=== PATIENT | female | born 1955 | race Caucasian/White ===

== ENCOUNTER 2019-02-19 20:21 | Emergency (ER) | payer BC, OTHER ==
[~2019-02-19] VITALS: Ht 162.6 cm; Wt 75.0 kg
[2019-02-19] MEDS ORDERED: SITA25 PO (21:02)
[2019-02-19] MEDS ORDERED: ATOR40TA28 PO (21:02)
[2019-02-19] MEDS ORDERED: AMLO10TA7 PO (21:04)
[2019-02-19] MEDS ORDERED: LOSA50TA64 PO (21:04)
[2019-02-19] MEDS ORDERED: ASPI81 PO (21:06)
[2019-02-19] MEDS ORDERED: METF-960 PO (21:06)
[2019-02-19] MEDS ORDERED: HYDR25TA PO (21:06)
[2019-02-19 22:35] LABS: BASOPHILS % (AUTO) 0.7 % (0.0-2.0); EOSINOPHILS % (AUTO) 2.1 % (1.0-6.0); HEMATOCRIT 34.7 % (36-46); HEMOGLOBIN 11.4 g/dL (12.0-16.0); LYMPHOCYTES # (AUTO) 1.9 K/uL (1.0-4.8); LYMPHOCYTES % (AUTO) 20.5 % (22.0-44.0); MEAN CORPUSCULAR HEMOGLOBIN 27.5 pg (26.0-34.0); MEAN CORPUSCULAR HGB CONC 32.7 G/dL (31.0-37.0); MEAN CORPUSCULAR VOLUME 84 fL (80-100); MONOCYTES # (AUTO) 0.7 K/uL (0.1-1.0); MONOCYTES % (AUTO) 7.3 % (2.0-9.0); NEUTROPHILS # (AUTO) 6.3 K/uL (1.8-7.7); NEUTROPHILS % (AUTO) 69.4 % (40.0-70.0); PLATELET COUNT (AUTO) 317 K/uL (150-450); RED BLOOD CELL COUNT(AUTO) 4.13 MIL/uL (4.00-5.20); RED CELL DISTRIBUTION WIDTH 15.3 % (11.5-14.5)
[2019-02-19 22:43] LABS: ANION GAP 10 mmol/L (8-16); CALCIUM, TOTAL 8.8 mg/dL (8.8-10.5); CARBON DIOXIDE 26 mmol/L (22-29); CHLORIDE 105 mmol/L (98-107); CREATININE 0.83 mg/dL (0.60-1.30); GLOMERULAR FILTR. RATE CALC > 60 mL/min (>60); GLUCOSE,RANDOM 143 mg/dL (70-110); POTASSIUM 3.8 mmol/L (3.5-5.1); SODIUM SERUM 141 mmol/L (136-145); UREA NITROGEN, BLOOD 13 mg/dL (7-18)
[2019-02-19 22:44] LABS: PROTHROMBIN TIME 9.8 SEC (9.4-11.6)
[2019-02-19 23:06] LABS: ALANINE AMINOTRANSFERASE 33 U/L (12-78); ALBUMIN 3.6 g/dL (3.4-5.0); ALKALINE PHOSPHATASE 72 U/L (46-116); ASPARTATE AMINOTRANSFERASE 35 U/L (15-37); BILIRUBIN,TOTAL 0.2 mg/dL (0.1-1.0); CREATINE KINASE, TOTAL ONLY 246 U/L (26-192); TOTAL PROTEIN, SERUM 8.1 g/dL (6.4-8.2)
[2019-02-20 01:00] VITALS: BP 158/94
[2019-02-20] MEDS ORDERED: LORazepam 2 MG/ML VIAL ONE (01:25)
[2019-02-20] MEDS ORDERED: LevETIRAcetam 1,000 MG in DEXTROSE 5%-WATER 100 ML IV ONE (01:30)
[2019-02-20] MEDS ORDERED: ONDANSETRON HCL 4 MG/2 ML VIAL IVP ONE (01:30)
== END 2019-02-20 02:35 | disposition short-term general hospital (02) ==
LOC: EMS 20:24
DX: R00.2 Palpitations (principal); R55 Syncope and collapse; R56.9 Unspecified convulsions; R42 Dizziness and giddiness; I25.2 Old myocardial infarction; I11.9 Hypertensive heart disease without heart failure; Z79.82 Long term (current) use of aspirin; Z79.84 Long term (current) use of oral hypoglycemic drugs
CPT/HCPCS: 36415; 71045; 80053; 82550; 83735; 84484; 85025; 85610; 93005; 96374; 96375; 99291; J0712; J2060; J2405; J7060